=== PATIENT | male | born 1985 | race Caucasian/White ===

== ENCOUNTER 2018-09-07 09:30 | Emergency (ER) | payer SELFPAY ==
[~2018-09-07] VITALS: Ht 162.6 cm; Wt 84.1 kg
[2018-09-07] MEDS ORDERED: ADDE10 PO (09:52)
[2018-09-07 10:01] LABS: BASOPHILS % (AUTO) 0.6 % (0.0-2.0); EOSINOPHILS % (AUTO) 0.1 % (1.0-6.0); HEMATOCRIT 43.9 % (41-53); HEMOGLOBIN 15.5 g/dL (13.5-17.5); LYMPHOCYTES # (AUTO) 0.9 K/uL (1.0-4.8); LYMPHOCYTES % (AUTO) 5.4 % (22.0-44.0); MEAN CORPUSCULAR HEMOGLOBIN 32.2 pg (26.0-34.0); MEAN CORPUSCULAR HGB CONC 35.2 G/dL (31.0-37.0); MEAN CORPUSCULAR VOLUME 92 fL (80-100); MONOCYTES # (AUTO) 1.1 K/uL (0.1-1.0); MONOCYTES % (AUTO) 6.5 % (2.0-9.0); NEUTROPHILS # (AUTO) 14.4 K/uL (1.8-7.7); PLATELET COUNT (AUTO) 315 K/uL (150-450); RED CELL DISTRIBUTION WIDTH 13.9 % (11.5-14.5)
[2018-09-07 10:03] LABS: NEUTROPHILS % (AUTO) 87.4 % (40.0-70.0)
[2018-09-07 10:10] LABS: ANION GAP 11 mmol/L (8-16); CALCIUM, TOTAL 9.3 mg/dL (8.8-10.5); CARBON DIOXIDE 27 mmol/L (22-29); CHLORIDE 104 mmol/L (98-107); GLOMERULAR FILTR. RATE CALC 47 mL/min (>60); GLUCOSE,RANDOM 113 mg/dL (70-110); POTASSIUM 3.1 mmol/L (3.5-5.1); SODIUM SERUM 142 mmol/L (136-145); UREA NITROGEN, BLOOD 13 mg/dL (7-18)
[2018-09-07 10:16] LABS: ALANINE AMINOTRANSFERASE 32 U/L (12-78); ALBUMIN 4.4 g/dL (3.4-5.0); ALKALINE PHOSPHATASE 94 U/L (46-116); ASPARTATE AMINOTRANSFERASE 40 U/L (15-37); BILIRUBIN,TOTAL 1.2 mg/dL (0.1-1.0); TOTAL PROTEIN, SERUM 8.9 g/dL (6.4-8.2)
[2018-09-07] MEDS ORDERED: LORazepam 2 MG/ML VIAL ONE (10:23)
[2018-09-07] MEDS ORDERED: LORazepam 2 MG/ML VIAL IM ONE ×2 (10:30→20:00)
[2018-09-07] MEDS ORDERED: POTASSIUM CHLORIDE 20 MEQ ER TABLET PO ONE (10:45)
[2018-09-07 12:52] LABS: AMPHET/METH SCREEN,URINE POSITIVE (NEGATIVE); BARBITURATE SCREEN, URINE NEGATIVE (NEGATIVE); BENZODIAZEPINES SCREEN,URINE NEGATIVE (NEGATIVE); CANNABINOID SCREEN,URINE POSITIVE (NEGATIVE); COCAINE SCREEN,URINE NEGATIVE (NEGATIVE); METHADONE SCREEN, URINE NEGATIVE (NEGATIVE); OPIATE SCREEN,URINE NEGATIVE (NEGATIVE)
[2018-09-07 12:53] LABS: PHENCYCLIDINE SCREEN,URINE NEGATIVE (NEGATIVE)
[2018-09-07] MEDS ORDERED: DiphenhydrAMINE HCL 25 MG CAPSULE PO ONE (13:00)
[2018-09-07] MEDS ORDERED: HALOPERIDOL 5 MG TABLET PO ONE (13:00)
[2018-09-07] MEDS ORDERED: DiphenhydrAMINE HCL 50 MG/ML VIAL IM ONE (20:00)
[2018-09-07] MEDS ORDERED: HALOPERIDOL LACTATE 5 MG/ML VIAL IM ONE (20:00)
[2018-09-07 20:32] VITALS: BP 128/76
== END 2018-09-07 20:35 | disposition home or self-care (01) ==
LOC: EMS 09:31
DX: F29 Unspecified psychosis not due to a substance or known physiological condition (principal); F15.10 Other stimulant abuse, uncomplicated; F41.9 Anxiety disorder, unspecified
CPT/HCPCS: 36415; 80053; 80307; 85025; 96372; 99285; G0480; J1200; J1630; J2060

== ENCOUNTER 2022-12-28 19:26 | Inpatient (IN) | payer MEDICAID ==
[~2022-12-28] VITALS: Ht 177.8 cm; Wt 91.7 kg
[~2022-12-28 19:26] MED LIST: ADDE10 PO
[2022-12-28 20:10] LABS: BASOPHILS % (AUTO) 0.3 % (0.0-2.0); EOSINOPHILS % (AUTO) 0 % (1.0-6.0); HEMATOCRIT 50.9 % (41-53); HEMOGLOBIN 17.6 g/dL (13.5-17.5); LYMPHOCYTES # (AUTO) 1.2 K/uL (1.0-4.8); LYMPHOCYTES % (AUTO) 5.7 % (22.0-44.0); MEAN CORPUSCULAR HEMOGLOBIN 33.1 pg (26.0-34.0); MEAN CORPUSCULAR HGB CONC 34.7 G/dL (31.0-37.0); MEAN CORPUSCULAR VOLUME 96 fL (80-100); MONOCYTES # (AUTO) 1.5 K/uL (0.1-1.0); MONOCYTES % (AUTO) 7.5 % (2.0-9.0); NEUTROPHILS # (AUTO) 17.6 K/uL (1.8-7.7); PLATELET COUNT (AUTO) 333 K/uL (150-450); RED BLOOD CELL COUNT(AUTO) 5.33 MIL/uL (4.50-5.90); RED CELL DISTRIBUTION WIDTH 13.8 % (11.5-14.5)
[2022-12-28 20:11] LABS: NEUTROPHILS % (AUTO) 86.5 % (40.0-70.0)
[2022-12-28 20:18] LABS: ANION GAP 11 mmol/L (8-16); CALCIUM, TOTAL 10.5 mg/dL (8.8-10.5); CARBON DIOXIDE 25 mmol/L (22-29); CHLORIDE 106 mmol/L (98-107); CREATININE 1.58 mg/dL (0.60-1.30); GLOMERULAR FILTR. RATE CALC 50 mL/min (>60); GLUCOSE,RANDOM 112 mg/dL (70-110); POTASSIUM 3.8 mmol/L (3.5-5.1); SODIUM SERUM 142 mmol/L (136-145); UREA NITROGEN, BLOOD 30 mg/dL (7-18)
[2022-12-28 20:24] LABS: ALANINE AMINOTRANSFERASE 66 U/L (12-78); ALBUMIN 5.6 g/dL (3.4-5.0); ALKALINE PHOSPHATASE 116 U/L (46-116); ASPARTATE AMINOTRANSFERASE 62 U/L (15-37); BILIRUBIN,TOTAL 1.4 mg/dL (0.1-1.0); TOTAL PROTEIN, SERUM 9.9 g/dL (6.4-8.2)
[2022-12-28] MEDS ORDERED: HALOPERIDOL LACTATE 5 MG/ML VIAL IM ONE (21:15)
[2022-12-28] MEDS ORDERED: DiphenhydrAMINE HCL 50 MG/ML VIAL IM ONE (21:15)
[2022-12-28] MEDS ORDERED: LORazepam 2 MG/ML VIAL IM ONE (21:15)
[2022-12-28] MEDS ORDERED: ZOLPIDEM TARTRATE 10 MG TABLET PO PRN (22:30)
[2022-12-28] MEDS ORDERED: HALOPERIDOL 5 MG TABLET PO PRN (22:30)
[2022-12-28] MEDS ORDERED: LORazepam 2 MG TABLET PO PRN (22:30)
[2022-12-28 23:37] LABS: COVID AG,FIA SOURCE NASOPHARYNGEAL
[2022-12-29 09:11] LABS: APPEARANCE,URINE CLEAR (CLEAR); BILIRUBIN,URINE NEGATIVE (NEGATIVE); GLUCOSE, URINE (UA) NEGATIVE (NEGATIVE); KETONES,URINE NEGATIVE (NEGATIVE); LEUKOCYTE ESTERASE ,URINE NEGATIVE (NEGATIVE); NITRATE,URINE NEGATIVE (NEGATIVE); OCCULT BLOOD,URINE NEGATIVE (NEGATIVE); PH,URINE 6.5 (5.0-8.0); PROTEIN,URINE NEGATIVE (NEGATIVE); SPECIFIC GRAVITIY, URINE 1.009 (1.003-1.030); UROBILINOGEN,URINE <=1.0 mg/dL (<=1.0)
[2022-12-29 09:14] LABS: AMPHET/METH SCREEN,URINE NEGATIVE (NEGATIVE); BARBITURATE SCREEN, URINE NEGATIVE (NEGATIVE); BENZODIAZEPINES SCREEN,URINE NEGATIVE (NEGATIVE); CANNABINOID SCREEN,URINE NEGATIVE (NEGATIVE); COCAINE SCREEN,URINE NEGATIVE (NEGATIVE); METHADONE SCREEN, URINE NEGATIVE (NEGATIVE); OPIATE SCREEN,URINE NEGATIVE (NEGATIVE); PHENCYCLIDINE SCREEN,URINE NEGATIVE (NEGATIVE)
[2022-12-29 14:50] VITALS: BP 157/93
[2022-12-29] MEDS ORDERED: CABO6SUS IM (15:41)
[2022-12-29] MEDS ORDERED: BICT1TAB PO (15:41)
[2022-12-29] MEDS ORDERED: ATOR10TA69 PO (15:41)
[2022-12-29 16:23] VITALS: BP 123/73
[2022-12-29] MEDS: ATORVASTATIN CALCIUM 10 MG TABLET PO SCH (17:35)
[2022-12-29] MEDS: BICTEGRAV/EMTRICIT/TENOFOV ALA 50-200-25 MG TABLET PO SCH (17:36)
[2022-12-29 20:14] VITALS: BP 121/76
[2022-12-29 21:05] VITALS: BP 121/76
[2022-12-30] MEDS ORDERED: BACITRACIN 28 GM OINTMENT TP PRN (05:30)
[2022-12-30] MEDS ORDERED: PETROLATUM,WHITE 28 GM JELLY TP PRN (05:30)
[2022-12-30] MEDS ORDERED: CloNIDine HCL 0.1 MG TABLET PO PRN (05:30)
[2022-12-30] MEDS ORDERED: LOPERAMIDE HCL 2 MG CAPSULE PO PRN (05:30)
[2022-12-30] MEDS ORDERED: OMEPRAZOLE 20 MG CAPSULE PO PRN (05:30)
[2022-12-30] MEDS ORDERED: ALBUTEROL SULFATE HFA 90 MCG/PUFF 8 GM INHALER IH PRN (05:30)
[2022-12-30] MEDS ORDERED: BENZOCAINE/MENTHOL LOZENGE PO PRN (05:30)
[2022-12-30] MEDS ORDERED: MAGNESIUM HYDROXIDE SUSPENSION 30 ML UDCUP PO PRN (05:30)
[2022-12-30] MEDS ORDERED: DOCUSATE SODIUM 100 MG CAPSULE PO PRN (05:30)
[2022-12-30] MEDS ORDERED: ACETAMINOPHEN 325 MG TABLET PO PRN (05:30)
[2022-12-30] MEDS ORDERED: MAG HYDROX/AL HYDROX/SIMETH ES 30 ML SUSPENSION UDCUP PO PRN (05:30)
[2022-12-30] MEDS ORDERED: ONDANSETRON HCL 4 MG TABLET PO PRN (05:30)
[2022-12-30 08:00] VITALS: BP 114/65
[2022-12-30] MEDS: ATORVASTATIN CALCIUM 10 MG TABLET PO SCH (09:12)
[2022-12-30] MEDS: BICTEGRAV/EMTRICIT/TENOFOV ALA 50-200-25 MG TABLET PO SCH (09:12)
[2022-12-30] MEDS: IBUPROFEN 600 MG TABLET PO PRN ×2 (12:04→19:07)
[2022-12-30 16:00] VITALS: BP 110/72
[2022-12-30 20:35] VITALS: BP 135/82
[2022-12-31 07:45] LABS: BASOPHILS % (AUTO) 0.2 % (0.0-2.0); EOSINOPHILS % (AUTO) 1.7 % (1.0-6.0); HEMATOCRIT 40.8 % (41-53); HEMOGLOBIN 14.4 g/dL (13.5-17.5); LYMPHOCYTES # (AUTO) 0.9 K/uL (1.0-4.8); LYMPHOCYTES % (AUTO) 13.3 % (22.0-44.0); MEAN CORPUSCULAR HGB CONC 35.2 G/dL (31.0-37.0); MEAN CORPUSCULAR VOLUME 97 fL (80-100); MONOCYTES # (AUTO) 0.9 K/uL (0.1-1.0); MONOCYTES % (AUTO) 13.7 % (2.0-9.0); NEUTROPHILS # (AUTO) 4.7 K/uL (1.8-7.7); NEUTROPHILS % (AUTO) 71.1 % (40.0-70.0); PLATELET COUNT (AUTO) 201 K/uL (150-450); RED BLOOD CELL COUNT(AUTO) 4.22 MIL/uL (4.50-5.90); RED CELL DISTRIBUTION WIDTH 13.6 % (11.5-14.5)
[2022-12-31 07:59] LABS: ALANINE AMINOTRANSFERASE 68 U/L (12-78); ALBUMIN 3.6 g/dL (3.4-5.0); ALKALINE PHOSPHATASE 85 U/L (46-116); ANION GAP 6 mmol/L (8-16); ASPARTATE AMINOTRANSFERASE 112 U/L (15-37); BILIRUBIN,TOTAL 0.6 mg/dL (0.1-1.0); CALCIUM, TOTAL 8.4 mg/dL (8.8-10.5); CARBON DIOXIDE 29 mmol/L (22-29); CHLORIDE 105 mmol/L (98-107); CREATININE 1.07 mg/dL (0.60-1.30); GLOMERULAR FILTR. RATE CALC > 60 mL/min (>60); GLUCOSE,RANDOM 92 mg/dL (70-110); PHOSPHORUS 3.5 mg/dL (2.5-4.9); POTASSIUM 4.2 mmol/L (3.5-5.1); SODIUM SERUM 140 mmol/L (136-145); TOTAL PROTEIN, SERUM 6.9 g/dL (6.4-8.2); UREA NITROGEN, BLOOD 22 mg/dL (7-18)
[2022-12-31 08:46] VITALS: BP 123/71
[2022-12-31] MEDS: BICTEGRAV/EMTRICIT/TENOFOV ALA 50-200-25 MG TABLET PO SCH (09:14)
[2022-12-31] MEDS: ATORVASTATIN CALCIUM 10 MG TABLET PO SCH (09:14)
[2022-12-31] MEDS: RisperiDONE 0.5 MG TABLET PO SCH ×2 (09:22→16:16)
[2022-12-31 16:13] VITALS: BP 118/75
[2022-12-31 16:45] VITALS: BP 123/83
[2022-12-31 20:01] VITALS: BP 123/90
[2022-12-31] MEDS ORDERED: RISP0.5T66 PO (21:55)
[2023-01-01] MEDS: ATORVASTATIN CALCIUM 10 MG TABLET PO SCH (08:54)
[2023-01-01 08:55] VITALS: BP 120/57
[2023-01-01] MEDS: RisperiDONE 0.5 MG TABLET PO SCH (08:55)
[2023-01-01] MEDS: BICTEGRAV/EMTRICIT/TENOFOV ALA 50-200-25 MG TABLET PO SCH (08:55)
== END 2023-01-01 09:50 | disposition home or self-care (01) | DRG 750 ==
LOC: EMS 19:28 → 3EI 12-29 15:11
PROVIDERS: ADMIT Psychiatry & Neurology Psychiatry; ATTEND Psychiatry & Neurology Psychiatry
DX: F20.9 Schizophrenia, unspecified (principal); R45.851 Suicidal ideations; F32.A Depression, unspecified; G47.00 Insomnia, unspecified; K59.00 Constipation, unspecified; F41.9 Anxiety disorder, unspecified; Z20.822 Contact with and (suspected) exposure to COVID-19
CPT/HCPCS: 80053; 80307; 81003; 83735; 84100; 85025; 99291; G0480; J1200; J1630; J2060; Q9967

== ENCOUNTER 2023-07-25 15:20 | Inpatient (IN) | payer MEDICAID, OTHER ==
[~2023-07-25] VITALS: Ht 172.7 cm; Wt 89.3 kg
[~2023-07-25 15:20] MED LIST changes: -ADDE10 PO; +ATOR10TA69 PO; +BICT1TAB PO; +RISP0.5T66 PO
[2023-07-25] MEDS ORDERED: DiphenhydrAMINE HCL 50 MG/ML VIAL IM ONE (15:30)
[2023-07-25] MEDS ORDERED: HALOPERIDOL LACTATE 5 MG/ML VIAL IM ONE (15:30)
[2023-07-25] MEDS ORDERED: LORazepam 2 MG/ML VIAL IM ONE (15:30)
[2023-07-25 17:10] LABS: BASOPHILS % (AUTO) 0.5 % (0.0-2.0); EOSINOPHILS % (AUTO) 0 % (1.0-6.0); HEMATOCRIT 45.5 % (41-53); HEMOGLOBIN 15.8 g/dL (13.5-17.5); LYMPHOCYTES # (AUTO) 1.6 K/uL (1.0-4.8); LYMPHOCYTES % (AUTO) 14.3 % (22.0-44.0); MEAN CORPUSCULAR HEMOGLOBIN 33.5 pg (26.0-34.0); MEAN CORPUSCULAR HGB CONC 34.7 G/dL (31.0-37.0); MEAN CORPUSCULAR VOLUME 97 fL (80-100); MONOCYTES # (AUTO) 0.9 K/uL (0.1-1.0); MONOCYTES % (AUTO) 8.5 % (2.0-9.0); NEUTROPHILS # (AUTO) 8.4 K/uL (1.8-7.7); NEUTROPHILS % (AUTO) 76.7 % (40.0-70.0); PLATELET COUNT (AUTO) 294 K/uL (150-450); RED BLOOD CELL COUNT(AUTO) 4.71 MIL/uL (4.50-5.90); RED CELL DISTRIBUTION WIDTH 13.4 % (11.5-14.5)
[2023-07-25 17:18] LABS: ANION GAP 12 mmol/L (8-16); CALCIUM, TOTAL 9.5 mg/dL (8.8-10.5); CARBON DIOXIDE 26 mmol/L (22-29); CHLORIDE 110 mmol/L (98-107); CREATININE 1.21 mg/dL (0.60-1.30); GLOMERULAR FILTR. RATE CALC > 60 mL/min (>60); GLUCOSE,RANDOM 102 mg/dL (70-110); POTASSIUM 3.4 mmol/L (3.5-5.1); SODIUM SERUM 148 mmol/L (136-145); UREA NITROGEN, BLOOD 15 mg/dL (7-18)
[2023-07-25 17:24] LABS: ALANINE AMINOTRANSFERASE 37 U/L (12-78); ALBUMIN 4.4 g/dL (3.4-5.0); ALKALINE PHOSPHATASE 87 U/L (46-116); ASPARTATE AMINOTRANSFERASE 26 U/L (15-37); BILIRUBIN,TOTAL 0.9 mg/dL (0.1-1.0); TOTAL PROTEIN, SERUM 8.4 g/dL (6.4-8.2)
[2023-07-25 17:31] LABS: ALCOHOL, BLOOD (SERUM) < 3 mg/dL (0-10)
[2023-07-25 19:06] LABS: COVID AG,FIA SOURCE NASAL SWAB
[2023-07-25 19:33] LABS: SARS-COV2 (COVID) ANTIGEN,FIA Negative (Negative)
[2023-07-25] MEDS: LORazepam 2 MG TABLET PO PRN (21:12)
[2023-07-25] MEDS: ZOLPIDEM TARTRATE 10 MG TABLET PO PRN (21:27)
[2023-07-25 21:39] VITALS: BP 132/82; PULSE 94; RESP 18; TEMP 97.6
[2023-07-26] MEDS ORDERED: PETROLATUM,WHITE 28 GM JELLY TP PRN (07:30)
[2023-07-26] MEDS ORDERED: GuaiFENesin/D-METHORPHAN [SUGAR-FREE] 200-20MG/10 ML SYRUP UDCUP PO PRN (07:30)
[2023-07-26] MEDS ORDERED: NICOTINE 14 MG/24 HOUR PATCH TD PRN (07:30)
[2023-07-26] MEDS ORDERED: MAG HYDROX/AL HYDROX/SIMETH ES 30 ML SUSPENSION UDCUP PO PRN (07:30)
[2023-07-26] MEDS ORDERED: ACETAMINOPHEN 325 MG TABLET PO PRN (07:30)
[2023-07-26] MEDS ORDERED: LOPERAMIDE HCL 2 MG CAPSULE PO PRN (07:30)
[2023-07-26] MEDS ORDERED: CloNIDine HCL 0.1 MG TABLET PO PRN (07:30)
[2023-07-26] MEDS ORDERED: MAGNESIUM HYDROXIDE SUSPENSION 30 ML UDCUP PO PRN (07:30)
[2023-07-26] MEDS ORDERED: ONDANSETRON HCL 4 MG TABLET PO PRN (07:30)
[2023-07-26] MEDS ORDERED: ALBUTEROL SULFATE HFA 90 MCG/PUFF 8 GM INHALER IH PRN (07:30)
[2023-07-26] MEDS ORDERED: IBUPROFEN 400 MG TABLET PO PRN (07:30)
[2023-07-26] MEDS ORDERED: DOCUSATE SODIUM 100 MG CAPSULE PO PRN (07:30)
[2023-07-26] MEDS: GABAPENTIN 300 MG CAPSULE PO SCH ×2 (11:21→12:15)
[2023-07-26] MEDS: RisperiDONE 2 MG TABLET PO SCH ×3 (11:21→21:04)
[2023-07-26] MEDS: BusPIRone HCL 15 MG TABLET PO SCH ×3 (11:21→17:00)
[2023-07-26] MEDS: LamoTRIgine 25 MG TABLET PO SCH ×2 (11:22→12:15)
[2023-07-26] MEDS: HALOPERIDOL 5 MG TABLET PO PRN ×2 (11:28→17:05)
[2023-07-26] MEDS: LORazepam 2 MG TABLET PO PRN ×2 (11:28→17:05)
[2023-07-26 11:33] VITALS: BP 127/74; PULSE 86; RESP 16; TEMP 97.4
[2023-07-26] MEDS: ZOLPIDEM TARTRATE 10 MG TABLET PO PRN (21:04)
[2023-07-27 09:28] LABS: THYROID STIMULATING HORMONE 2.08 uIU/mL (0.36-3.74)
[2023-07-27 10:47] VITALS: BP 129/76; PULSE 96; RESP 18; TEMP 97
[2023-07-27] MEDS: BusPIRone HCL 15 MG TABLET PO SCH ×2 (12:24→17:09)
[2023-07-27] MEDS: RisperiDONE 2 MG TABLET PO SCH ×2 (12:24→20:27)
[2023-07-27] MEDS: HALOPERIDOL 5 MG TABLET PO PRN (12:30)
[2023-07-27] MEDS: LORazepam 2 MG TABLET PO PRN ×2 (12:30→17:26)
[2023-07-27] MEDS: ZOLPIDEM TARTRATE 10 MG TABLET PO PRN (20:27)
[2023-07-28 07:48] LABS: CHOL/HDL RATIO 4.3 (4.2-7.3)
[2023-07-28 08:15] VITALS: BP 127/65; PULSE 91; RESP 17; TEMP 98.2
[2023-07-28] MEDS: BusPIRone HCL 15 MG TABLET PO SCH (08:33)
[2023-07-28] MEDS: RisperiDONE 2 MG TABLET PO SCH (08:33)
[2023-07-28] MEDS ORDERED: RISP2TAB86 PO (12:52)
[2023-07-28] MEDS ORDERED: BUSP15 PO (12:52)
== END 2023-07-28 15:30 | disposition home or self-care (01) | DRG 750 ==
LOC: EMS 15:22 → 3EC 18:58
PROVIDERS: ADMIT Psychiatry & Neurology Child & Adolescent Psychiatry; ATTEND Psychiatry & Neurology Child & Adolescent Psychiatry
DX: F25.9 Schizoaffective disorder, unspecified (principal); E87.0 Hyperosmolality and hypernatremia; E87.6 Hypokalemia; F41.9 Anxiety disorder, unspecified; F90.9 Attention-deficit hyperactivity disorder, unspecified type; Z20.822 Contact with and (suspected) exposure to COVID-19; Z59.00 Homelessness unspecified
CPT/HCPCS: 80053; 80061; 83036; 84443; 85025; 99291; G0480; J1200; J1630; J2060

== ENCOUNTER 2023-07-31 20:55 | Emergency (ER) | payer MEDICAID, OTHER ==
[~2023-07-31] VITALS: Ht 177.8 cm; Wt 88.6 kg
[~2023-07-31 20:55] MED LIST changes: -ATOR10TA69 PO; -BICT1TAB PO; +BUSP15 PO; -RISP0.5T66 PO; +RISP2TAB86 PO
[2023-07-31 20:58] VITALS: TEMP 98.5
[2023-07-31 21:29] LABS: COVID AG,FIA SOURCE NASAL SWAB
[2023-07-31 21:30] LABS: PH,URINE DRUG SCREEN 6.5 (5.0-8.0)
[2023-07-31 21:31] LABS: BASOPHILS % (AUTO) 0.3 % (0.0-2.0); EOSINOPHILS % (AUTO) 0 % (1.0-6.0); HEMOGLOBIN 15.3 g/dL (13.5-17.5); LYMPHOCYTES # (AUTO) 1.2 K/uL (1.0-4.8); LYMPHOCYTES % (AUTO) 10.8 % (22.0-44.0); MEAN CORPUSCULAR HEMOGLOBIN 33.7 pg (26.0-34.0); MEAN CORPUSCULAR HGB CONC 34.7 G/dL (31.0-37.0); MEAN CORPUSCULAR VOLUME 97 fL (80-100); MONOCYTES # (AUTO) 0.8 K/uL (0.1-1.0); MONOCYTES % (AUTO) 7.6 % (2.0-9.0); NEUTROPHILS % (AUTO) 81.3 % (40.0-70.0); PLATELET COUNT (AUTO) 268 K/uL (150-450); RED BLOOD CELL COUNT(AUTO) 4.53 MIL/uL (4.50-5.90); WHITE BLOOD COUNT (AUTO) 11.1 K/uL (4.5-11.0)
[2023-07-31 21:36] LABS: ALCOHOL, URINE DRUG SCREEN NEGATIVE (NEGATIVE); AMPHET/METH SCREEN,URINE POSITIVE (NEGATIVE); BARBITURATE SCREEN, URINE NEGATIVE (NEGATIVE); BENZODIAZEPINES SCREEN,URINE POSITIVE (NEGATIVE); CANNABINOID SCREEN,URINE POSITIVE (NEGATIVE); COCAINE SCREEN,URINE NEGATIVE (NEGATIVE); METHADONE SCREEN, URINE NEGATIVE (NEGATIVE); OPIATE SCREEN,URINE NEGATIVE (NEGATIVE); PHENCYCLIDINE SCREEN,URINE NEGATIVE (NEGATIVE)
[2023-07-31 21:45] LABS: ANION GAP 11 mmol/L (8-16); CALCIUM, TOTAL 9.1 mg/dL (8.8-10.5); CARBON DIOXIDE 23 mmol/L (22-29); CHLORIDE 105 mmol/L (98-107); CREATININE 1.38 mg/dL (0.60-1.30); GLOMERULAR FILTR. RATE CALC 58 mL/min (>60); GLUCOSE,RANDOM 120 mg/dL (70-110); POTASSIUM 3.4 mmol/L (3.5-5.1); SODIUM SERUM 139 mmol/L (136-145); UREA NITROGEN, BLOOD 19 mg/dL (7-18)
[2023-07-31 21:50] LABS: ALANINE AMINOTRANSFERASE 32 U/L (12-78); ALBUMIN 3.8 g/dL (3.4-5.0); ALKALINE PHOSPHATASE 86 U/L (46-116); ASPARTATE AMINOTRANSFERASE 23 U/L (15-37); BILIRUBIN,TOTAL 0.9 mg/dL (0.1-1.0); TOTAL PROTEIN, SERUM 7.7 g/dL (6.4-8.2)
[2023-07-31 21:52] LABS: SARS-COV2 (COVID) ANTIGEN,FIA Negative (Negative)
[2023-07-31 22:05] LABS: ALCOHOL, BLOOD (SERUM) < 3 mg/dL (0-10)
[2023-08-01] MEDS ORDERED: LORazepam 2 MG/ML VIAL IM ONE (00:45)
[2023-08-01] MEDS ORDERED: HALOPERIDOL LACTATE 5 MG/ML VIAL IM ONE (00:45)
[2023-08-01] MEDS ORDERED: DiphenhydrAMINE HCL 50 MG/ML VIAL IM ONE (00:45)
[2023-08-01 05:59] VITALS: BP 132/78; PULSE 70; RESP 20
== END 2023-08-01 06:02 | disposition home or self-care (01) ==
LOC: EMS 20:55
DX: F20.9 Schizophrenia, unspecified (principal); F15.10 Other stimulant abuse, uncomplicated; F41.9 Anxiety disorder, unspecified; F90.9 Attention-deficit hyperactivity disorder, unspecified type; Z20.822 Contact with and (suspected) exposure to COVID-19
CPT/HCPCS: 99291; 87426; 80053; 85025; 36415; 80307; 96372; G0480; C9803; J1200; J1630; J2060; 99284

== ENCOUNTER 2024-08-14 03:51 | Inpatient (IN) | payer MEDICAID, OTHER ==
[~2024-08-14] VITALS: Ht 177.8 cm; Wt 86.2 kg
[2024-08-14 04:47] LABS: PH,URINE DRUG SCREEN 5.5 (5.0-8.0)
[2024-08-14 04:54] LABS: ALCOHOL, URINE DRUG SCREEN NEGATIVE (NEGATIVE); AMPHET/METH SCREEN,URINE POSITIVE (NEGATIVE); BARBITURATE SCREEN, URINE NEGATIVE (NEGATIVE); BENZODIAZEPINES SCREEN,URINE NEGATIVE (NEGATIVE); CANNABINOID SCREEN,URINE POSITIVE (NEGATIVE); COCAINE SCREEN,URINE NEGATIVE (NEGATIVE); METHADONE SCREEN, URINE NEGATIVE (NEGATIVE); OPIATE SCREEN,URINE NEGATIVE (NEGATIVE); PHENCYCLIDINE SCREEN,URINE NEGATIVE (NEGATIVE)
[2024-08-14 05:36] LABS: BASOPHILS % (AUTO) 0.6 % (0.0-2.0); EOSINOPHILS % (AUTO) 0.2 % (1.0-6.0); HEMATOCRIT 43.9 % (41-53); HEMOGLOBIN 15.2 g/dL (13.5-17.5); LYMPHOCYTES # (AUTO) 2.2 K/uL (1.0-4.8); LYMPHOCYTES % (AUTO) 16.6 % (22.0-44.0); MEAN CORPUSCULAR HEMOGLOBIN 32.1 pg (26.0-34.0); MEAN CORPUSCULAR HGB CONC 34.7 G/dL (31.0-37.0); MEAN CORPUSCULAR VOLUME 93 fL (80-100); MONOCYTES # (AUTO) 1.1 K/uL (0.1-1.0); MONOCYTES % (AUTO) 8.5 % (2.0-9.0); NEUTROPHILS # (AUTO) 9.6 K/uL (1.8-7.7); NEUTROPHILS % (AUTO) 74.1 % (40.0-70.0); PLATELET COUNT (AUTO) 317 K/uL (150-450); RED BLOOD CELL COUNT(AUTO) 4.75 MIL/uL (4.50-5.90); RED CELL DISTRIBUTION WIDTH 15.7 % (11.5-14.5)
[2024-08-14 06:19] LABS: ALCOHOL, BLOOD (SERUM) < 3 mg/dL (0-10)
[2024-08-14] MEDS: ACETAMINOPHEN 325 MG TABLET PO ONE (06:44)
[2024-08-14 09:46] LABS: ANION GAP 14 mmol/L (8-16); CALCIUM, TOTAL 9.1 mg/dL (8.8-10.5); CARBON DIOXIDE 24 mmol/L (22-29); CHLORIDE 102 mmol/L (98-107); CREATININE 1.17 mg/dL (0.60-1.30); GLOMERULAR FILTR. RATE CALC > 60 mL/min (>60); GLUCOSE,RANDOM 107 mg/dL (70-110); POTASSIUM 3.5 mmol/L (3.5-5.1); SODIUM SERUM 140 mmol/L (136-145); UREA NITROGEN, BLOOD 19 mg/dL (7-18)
[2024-08-14 09:52] LABS: ALANINE AMINOTRANSFERASE 54 U/L (12-78); ALBUMIN 4.3 g/dL (3.4-5.0); ALKALINE PHOSPHATASE 94 U/L (46-116); ASPARTATE AMINOTRANSFERASE 53 U/L (15-37); TOTAL PROTEIN, SERUM 8.2 g/dL (6.4-8.2)
[2024-08-14] MEDS ORDERED: LOPERAMIDE HCL 2 MG CAPSULE PO PRN (10:00)
[2024-08-14] MEDS ORDERED: HALOPERIDOL 5 MG TABLET PO PRN (10:00)
[2024-08-14] MEDS ORDERED: ACETAMINOPHEN 325 MG TABLET PO PRN (10:00)
[2024-08-14] MEDS ORDERED: ZOLPIDEM TARTRATE 10 MG TABLET PO PRN (10:00)
[2024-08-14] MEDS ORDERED: MAG HYDROX/ALUMINUM HYD/SIMETH ES 30 ML SUSPENSION UDCUP PO PRN (10:00)
[2024-08-14] MEDS ORDERED: MAGNESIUM HYDROXIDE SUSPENSION 30 ML UDCUP PO PRN (10:00)
[2024-08-14] MEDS: LORazepam 2 MG TABLET PO PRN (11:53)
[2024-08-14 12:41] LABS: COVID AG,FIA SOURCE NASAL SWAB
[2024-08-14 13:03] LABS: SARS-COV2 (COVID) ANTIGEN,FIA Negative (Negative)
[2024-08-14 17:29] VITALS: BP 140/94; PULSE 99; RESP 16; TEMP 97.4; O2SAT 98
[2024-08-14 20:15] VITALS: BP 138/86; PULSE 95; RESP 17; TEMP 97.3; O2SAT 98
[2024-08-15] MEDS: PNEUMOCOCCAL VACCINE POLYVALENT 0.5 ML SYRINGE [PPSV23] IM. ONE (08:00)
[2024-08-15] MEDS ORDERED: NICOTINE 14 MG/24 HOUR PATCH TD PRN (10:15)
[2024-08-15] MEDS ORDERED: IBUPROFEN 400 MG TABLET PO PRN (10:15)
[2024-08-15] MEDS ORDERED: PETROLATUM,WHITE 28 GM JELLY TP PRN (10:15)
[2024-08-15] MEDS ORDERED: ACETAMINOPHEN 325 MG TABLET PO PRN (10:15)
[2024-08-15] MEDS ORDERED: ONDANSETRON 4 MG TABLET PO PRN (10:15)
[2024-08-15] MEDS ORDERED: CloNIDine HCL 0.1 MG TABLET PO PRN (10:15)
[2024-08-15] MEDS ORDERED: MAGNESIUM HYDROXIDE SUSPENSION 30 ML UDCUP PO PRN (10:15)
[2024-08-15] MEDS ORDERED: MAG HYDROX/ALUMINUM HYD/SIMETH ES 30 ML SUSPENSION UDCUP PO PRN (10:15)
[2024-08-15] MEDS ORDERED: LOPERAMIDE HCL 2 MG CAPSULE PO PRN (10:15)
[2024-08-15] MEDS ORDERED: DOCUSATE SODIUM 100 MG CAPSULE PO PRN (10:15)
[2024-08-15] MEDS ORDERED: ALBUTEROL SULFATE HFA 90 MCG/PUFF 8 GM INHALER IH PRN (10:15)
[2024-08-15] MEDS ORDERED: GuaiFENesin/D-METHORPHAN [SUGAR-FREE] 200-20MG/10 ML SYRUP UDCUP PO PRN (10:15)
[2024-08-15] MEDS: INFLUENZA VIRUS VACCINE TVS (6MO+) 2024-25/PF 45 MCG/0.5 ML SYRINGE IM. ONE (20:29)
[2024-08-15 21:04] VITALS: BP 136/90; PULSE 96; RESP 18; TEMP 97.1; O2SAT 99
[2024-08-16 08:06] VITALS: RESP 18
[2024-08-16 09:01] LABS: CHOL/HDL RATIO 3.5 (4.2-7.3); HEMOGLOBIN A1C 4.8 % (3.8-5.6); THYROID STIMULATING HORMONE 1.11 uIU/mL (0.36-3.74)
== END 2024-08-16 17:49 | disposition left against medical advice (07) | DRG 751 ==
LOC: EMS 03:51 → B2S 15:57
PROVIDERS: ADMIT Psychiatry & Neurology Psychiatry; ATTEND Psychiatry & Neurology Psychiatry
PROC: GZHZZZZ Group Psychotherapy (ICD-10-PCS; principal; 2024-08-15)
DX: F33.2 Major depressive disorder, recurrent severe without psychotic features (principal); R45.851 Suicidal ideations; F20.9 Schizophrenia, unspecified; D72.829 Elevated white blood cell count, unspecified; Z53.21 Procedure and treatment not carried out due to patient leaving prior to being seen by health care provider; F90.9 Attention-deficit hyperactivity disorder, unspecified type; F41.9 Anxiety disorder, unspecified; I10 Essential (primary) hypertension; G47.00 Insomnia, unspecified; Z59.00 Homelessness unspecified; F15.90 Other stimulant use, unspecified, uncomplicated; Z21 Asymptomatic human immunodeficiency virus [HIV] infection status; R00.0 Tachycardia, unspecified
CPT/HCPCS: 80048; 80061; 80076; 80307; 83036; 84443; 85025; 99285; G0480

== ENCOUNTER 2024-11-01 22:13 | Inpatient (IN) | payer MEDICAID, OTHER ==
[~2024-11-01] VITALS: Ht 172.7 cm; Wt 84.0 kg
[2024-11-01] MEDS ORDERED: HALOPERIDOL 5 MG TABLET PO PRN (23:00)
[2024-11-01] MEDS ORDERED: LORazepam 2 MG TABLET PO PRN (23:00)
[2024-11-02 02:08] LABS: COVID AG,FIA SOURCE NASAL SWAB
[2024-11-02 02:16] LABS: SARS-COV2 (COVID) ANTIGEN,FIA Negative (Negative)
[2024-11-02 05:58] VITALS: BP 129/87; PULSE 91; RESP 18; TEMP 97.9; O2SAT 100
[2024-11-02] MEDS ORDERED: IBUPROFEN 400 MG TABLET PO PRN (06:30)
[2024-11-02] MEDS ORDERED: ACETAMINOPHEN 325 MG TABLET PO PRN (06:30)
[2024-11-02] MEDS ORDERED: DOCUSATE SODIUM 100 MG CAPSULE PO PRN (06:30)
[2024-11-02] MEDS ORDERED: MAGNESIUM HYDROXIDE SUSPENSION 30 ML UDCUP PO PRN (06:30)
[2024-11-02] MEDS ORDERED: ALBUTEROL SULFATE HFA 90 MCG/PUFF 8 GM INHALER IH PRN (06:30)
[2024-11-02] MEDS ORDERED: CloNIDine HCL 0.1 MG TABLET PO PRN (06:30)
[2024-11-02] MEDS ORDERED: LOPERAMIDE HCL 2 MG CAPSULE PO PRN (06:30)
[2024-11-02] MEDS ORDERED: ONDANSETRON 4 MG TABLET PO PRN (06:30)
[2024-11-02] MEDS ORDERED: PETROLATUM,WHITE 28 GM JELLY TP PRN (06:30)
[2024-11-02] MEDS ORDERED: MAG HYDROX/ALUMINUM HYD/SIMETH ES 30 ML SUSPENSION UDCUP PO PRN (06:30)
[2024-11-02] MEDS ORDERED: GuaiFENesin/D-METHORPHAN [SUGAR-FREE] 200-20MG/10 ML SYRUP UDCUP PO PRN (06:30)
[2024-11-02] MEDS: OLANZapine 5 MG RAPDIS TABLET PO SCH (17:16)
[2024-11-02 22:52] VITALS: RESP 18
[2024-11-03 12:41] VITALS: RESP 17
[2024-11-03 20:32] VITALS: BP 125/78; PULSE 86; RESP 18; TEMP 98.1; O2SAT 98
[2024-11-03] MEDS: ZOLPIDEM TARTRATE 10 MG TABLET PO PRN (20:58)
== END 2024-11-04 18:34 | disposition home or self-care (01) | DRG 750 ==
LOC: EMS 22:14 → B2S 11-02 02:57
PROVIDERS: ADMIT Psychiatry & Neurology Child & Adolescent Psychiatry; ATTEND Psychiatry & Neurology Child & Adolescent Psychiatry
PROC: GZ56ZZZ Individual Psychotherapy, Supportive (ICD-10-PCS; principal; 2024-11-02)
DX: F20.9 Schizophrenia, unspecified (principal); F15.10 Other stimulant abuse, uncomplicated; Z20.822 Contact with and (suspected) exposure to COVID-19; F41.9 Anxiety disorder, unspecified; G47.00 Insomnia, unspecified; I10 Essential (primary) hypertension; Z59.00 Homelessness unspecified; Z88.8 Allergy status to other drugs, medicaments and biological substances
CPT/HCPCS: 99285; Z7502; Z7610

== ENCOUNTER 2025-06-04 20:01 | Inpatient (IN) | payer MEDICAID, OTHER ==
[~2025-06-04] VITALS: Ht 177.8 cm; Wt 82.3 kg
[2025-06-04 20:12] VITALS: O2SAT 98
[2025-06-04 20:40] LABS: PLATELET COUNT (AUTO) 323 K/uL (150-450); RED BLOOD CELL COUNT(AUTO) 4.72 MIL/uL (4.50-5.90); RED CELL DISTRIBUTION WIDTH 13.9 % (11.5-14.5); WHITE BLOOD COUNT (AUTO) 6.7 K/uL (4.5-11.0)
[2025-06-04 20:46] LABS: COVID AG,FIA SOURCE NASAL SWAB
[2025-06-04 20:50] LABS: CALCIUM, TOTAL 8.6 mg/dL (8.8-10.5); CREATININE 1.20 mg/dL (0.60-1.30); GLOMERULAR FILTR. RATE CALC > 60 mL/min (>60); GLUCOSE,RANDOM 113 mg/dL (70-110); SODIUM SERUM 138 mmol/L (136-145); UREA NITROGEN, BLOOD 18 mg/dL (7-18)
[2025-06-04] MEDS: LORazepam 2 MG/ML VIAL IM ONE (20:53)
[2025-06-04 21:12] LABS: SARS-COV2 (COVID) ANTIGEN,FIA Negative (Negative)
[2025-06-04] MEDS ORDERED: ZOLPIDEM TARTRATE 10 MG TABLET PO PRN (21:15)
[2025-06-04 21:25] LABS: APPEARANCE,URINE CLEAR (CLEAR); GLUCOSE, URINE (UA) NEGATIVE (NEGATIVE); LEUKOCYTE ESTERASE ,URINE NEGATIVE (NEGATIVE); NITRATE,URINE NEGATIVE (NEGATIVE); OCCULT BLOOD,URINE NEGATIVE (NEGATIVE); PH,URINE DRUG SCREEN 6.0 (5.0-8.0); SPECIFIC GRAVITIY, URINE 1.046 (1.003-1.030)
[2025-06-04 21:32] LABS: ALCOHOL, URINE DRUG SCREEN NEGATIVE (NEGATIVE); AMPHET/METH SCREEN,URINE POSITIVE (NEGATIVE); BARBITURATE SCREEN, URINE NEGATIVE (NEGATIVE); CANNABINOID SCREEN,URINE POSITIVE (NEGATIVE); COCAINE SCREEN,URINE NEGATIVE (NEGATIVE); METHADONE SCREEN, URINE NEGATIVE (NEGATIVE)
[2025-06-04] MEDS: POTASSIUM CHLORIDE 20 MEQ ER TABLET PO ONE (21:51)
[2025-06-05 02:16] VITALS: BP 100/89; PULSE 76; RESP 18; TEMP 97.2; O2SAT 99
[2025-06-05 08:07] VITALS: BP 104/60; PULSE 64; RESP 17; TEMP 97.4; O2SAT 98
[2025-06-05] MEDS ORDERED: MAG HYDROX/ALUMINUM HYD/SIMETH ES 30 ML SUSPENSION UDCUP PO PRN (09:45)
[2025-06-05] MEDS ORDERED: DOCUSATE SODIUM 100 MG CAPSULE PO PRN (09:45)
[2025-06-05] MEDS ORDERED: PETROLATUM,WHITE 28 GM JELLY TP PRN (09:45)
[2025-06-05] MEDS ORDERED: MAGNESIUM HYDROXIDE SUSPENSION 30 ML UDCUP PO PRN (09:45)
[2025-06-05] MEDS ORDERED: BENZOCAINE/MENTHOL [CEPACOL] LOZENGE PO PRN (09:45)
[2025-06-05] MEDS ORDERED: ACETAMINOPHEN 325 MG TABLET PO PRN (09:45)
[2025-06-05] MEDS ORDERED: BACITRACIN 28 GM OINTMENT TP PRN (09:45)
[2025-06-05] MEDS ORDERED: OMEPRAZOLE 20 MG CAPSULE PO PRN (09:45)
[2025-06-05] MEDS ORDERED: ALBUTEROL SULFATE HFA 90 MCG/PUFF 8 GM INHALER IH PRN (09:45)
[2025-06-05] MEDS ORDERED: LOPERAMIDE HCL 2 MG CAPSULE PO PRN (09:45)
[2025-06-05] MEDS ORDERED: ONDANSETRON 4 MG TABLET PO PRN (09:45)
[2025-06-05] MEDS: BICTEGRAV/EMTRICIT/TENOFOV ALA 50-200-25 MG TABLET PO SCH (10:05)
[2025-06-05 20:09] VITALS: BP 115/67; PULSE 84; RESP 17; TEMP 97.7; O2SAT 98
[2025-06-06 08:06] VITALS: RESP 15
[2025-06-06 19:58] VITALS: BP 109/89; PULSE 80; RESP 17; TEMP 97.2; O2SAT 100
[2025-06-06] MEDS: IBUPROFEN 600 MG TABLET PO PRN (19:59)
[2025-06-06 20:10] VITALS: BP 109/89; PULSE 80; RESP 18; TEMP 97.2; O2SAT 100
[2025-06-06 20:58] VITALS: BP 104/70; PULSE 76; RESP 17; TEMP 97.6; O2SAT 97
[2025-06-06 21:59] VITALS: BP 110/68; PULSE 72; RESP 18; TEMP 97.5; O2SAT 99
[2025-06-07 08:05] VITALS: BP 105/60; PULSE 71; RESP 17; TEMP 97.6; O2SAT 97
[2025-06-07] MEDS ORDERED: BICT1TAB PO (10:14)
[2025-06-07] MEDS ORDERED: RISP-31 PO (10:14)
== END 2025-06-07 13:21 | disposition home or self-care (01) | DRG 750 ==
LOC: EMS 20:01 → B3A 06-05 01:31
PROVIDERS: ADMIT Psychiatry & Neurology Psychiatry; ATTEND Psychiatry & Neurology Psychiatry
PROC: GZHZZZZ Group Psychotherapy (ICD-10-PCS; principal; 2025-06-05)
DX: F20.0 Paranoid schizophrenia (principal); F11.20 Opioid dependence, uncomplicated; F12.10 Cannabis abuse, uncomplicated; F15.10 Other stimulant abuse, uncomplicated; F32.A Depression, unspecified; I10 Essential (primary) hypertension; G47.00 Insomnia, unspecified; F19.10 Other psychoactive substance abuse, uncomplicated; Z20.822 Contact with and (suspected) exposure to COVID-19; K59.00 Constipation, unspecified; F90.9 Attention-deficit hyperactivity disorder, unspecified type; Z59.00 Homelessness unspecified; Z79.899 Other long term (current) drug therapy
CPT/HCPCS: 80048; 80307; 81003; 85025; 96372; 99285; G0480; J1630; J2060

== ENCOUNTER 2025-06-11 10:05 | Emergency (ER) | payer MEDICAID, OTHER ==
[~2025-06-11] VITALS: Ht 177.8 cm; Wt 82.3 kg
[~2025-06-11 10:05] MED LIST changes: +BICT1TAB PO; -BUSP15 PO; +RISP-31 PO; -RISP2TAB86 PO
[2025-06-11 10:20] VITALS: BP 150/71; PULSE 98; RESP 20; TEMP 98.8; O2SAT 99
[2025-06-11] MEDS: KETOROLAC TROMETHAMINE 30 MG/ML VIAL IM ONE (10:59)
[2025-06-11] MEDS ORDERED: ACET-3385 PO (11:01)
== END 2025-06-11 12:03 | disposition home or self-care (01) ==
LOC: EMS 10:05
DX: M76.61 Achilles tendinitis, right leg (principal); F20.9 Schizophrenia, unspecified; I10 Essential (primary) hypertension; F41.9 Anxiety disorder, unspecified; Z79.899 Other long term (current) drug therapy; Z88.8 Allergy status to other drugs, medicaments and biological substances
CPT/HCPCS: 99283; 96372; J1885

== ENCOUNTER 2025-09-05 21:21 | Inpatient (IN) | payer MEDICAID, OTHER ==
[~2025-09-05] VITALS: Ht 175.3 cm; Wt 81.6 kg
[~2025-09-05 21:21] MED LIST changes: +ACET-3385 PO
[2025-09-05] MEDS: LORazepam 2 MG/ML VIAL IM ONE (22:07)
[2025-09-05 22:22] LABS: COVID AG,FIA SOURCE NASAL SWAB; SARS-COV2 (COVID) ANTIGEN,FIA Negative (Negative)
[2025-09-05] MEDS: ACETAMINOPHEN 500 MG TABLET PO ONE (22:30)
[2025-09-05] MEDS: IBUPROFEN 400 MG TABLET PO ONE (22:30)
[2025-09-06] MEDS: ZOLPIDEM TARTRATE 10 MG TABLET PO PRN (02:54)
[2025-09-06 05:40] VITALS: BP 138/81; PULSE 105; RESP 18; TEMP 97.4; O2SAT 96
[2025-09-06 05:48] VITALS: BP 138/81; PULSE 105; RESP 18; TEMP 96; O2SAT 96
[2025-09-06] MEDS ORDERED: ONDANSETRON 4 MG TABLET PO PRN (06:00)
[2025-09-06] MEDS ORDERED: ALBUTEROL SULFATE HFA 90 MCG/PUFF 8 GM INHALER IH PRN (06:00)
[2025-09-06] MEDS ORDERED: LOPERAMIDE HCL 2 MG CAPSULE PO PRN (06:00)
[2025-09-06] MEDS ORDERED: DOCUSATE SODIUM 100 MG CAPSULE PO PRN (06:00)
[2025-09-06] MEDS ORDERED: MAG HYDROX/ALUMINUM HYD/SIMETH ES 30 ML SUSPENSION UDCUP PO PRN (06:00)
[2025-09-06] MEDS ORDERED: PETROLATUM,WHITE 28 GM JELLY TP PRN (06:00)
[2025-09-06] MEDS ORDERED: GuaiFENesin/D-METHORPHAN [SUGAR-FREE] 200-20MG/10 ML SYRUP UDCUP PO PRN (06:00)
[2025-09-06] MEDS ORDERED: MAGNESIUM HYDROXIDE SUSPENSION 30 ML UDCUP PO PRN (06:00)
[2025-09-06] MEDS ORDERED: NICOTINE 14 MG/24 HOUR PATCH TD PRN (06:00)
[2025-09-06] MEDS ORDERED: PNEUMOCOCCAL VACCINE POLYVALENT 0.5 ML SYRINGE [PPSV23] IM. ONE (06:15)
[2025-09-06 06:24] VITALS: RESP 18
[2025-09-06] MEDS ORDERED: ACETAMINOPHEN 325 MG TABLET PO PRN (06:45)
[2025-09-06] MEDS ORDERED: IBUPROFEN 400 MG TABLET PO PRN (06:45)
[2025-09-06] MEDS: BICTEGRAV/EMTRICIT/TENOFOV ALA 50-200-25 MG TABLET PO SCH (08:21)
[2025-09-06] MEDS ORDERED: BICTEGRAV/EMTRICIT/TENOFOV ALA 50-200-25 MG TABLET PO SCH (09:00)
[2025-09-06] MEDS: IBUPROFEN 400 MG TABLET PO PRN (10:50)
[2025-09-06 12:52] VITALS: BP_SYST 115; BP_SYST 119; BP_DIAS 82; BP_DIAS 83; PULSE 69; PULSE 84; RESP 17; TEMP 97.9; O2SAT 98; O2SAT 99
[2025-09-06 20:08] VITALS: RESP 18
[2025-09-07 08:36] VITALS: BP 107/70; PULSE 90; RESP 18; TEMP 98; O2SAT 98
[2025-09-07 09:10] LABS: PLATELET COUNT (AUTO) 248 K/uL (150-450); RED BLOOD CELL COUNT(AUTO) 4.60 MIL/uL (4.50-5.90); RED CELL DISTRIBUTION WIDTH 13.2 % (11.5-14.5); WHITE BLOOD COUNT (AUTO) 4.9 K/uL (4.5-11.0)
[2025-09-07 09:19] LABS: CALCIUM, TOTAL 8.8 mg/dL (8.8-10.5); CREATININE 0.96 mg/dL (0.60-1.30); GLOMERULAR FILTR. RATE CALC > 60 mL/min (>60); GLUCOSE,RANDOM 67 mg/dL (70-110); SODIUM SERUM 141 mmol/L (136-145); UREA NITROGEN, BLOOD 20 mg/dL (7-18)
[2025-09-07 09:50] LABS: CHOL/HDL RATIO 3.8 (4.2-7.3); LDL CHOL (CALC.) 123.0 mg/dL (0-130)
[2025-09-07 18:38] VITALS: RESP 18
[2025-09-07] MEDS: ACETAMINOPHEN 325 MG TABLET PO PRN (18:38)
[2025-09-07 19:35] VITALS: RESP 17
[2025-09-07 20:17] VITALS: BP 117/79; PULSE 89; RESP 18; TEMP 97.5; O2SAT 99
[2025-09-08 08:04] VITALS: BP 123/86; PULSE 82; RESP 18; TEMP 97.1; O2SAT 99
== END 2025-09-08 12:40 | disposition home or self-care (01) | DRG 750 ==
LOC: EMS 21:21 → B3A 09-06 02:21
PROVIDERS: ADMIT Psychiatry & Neurology Child & Adolescent Psychiatry; ATTEND Psychiatry & Neurology Child & Adolescent Psychiatry
PROC: GZ56ZZZ Individual Psychotherapy, Supportive (ICD-10-PCS; principal; 2025-09-06)
PROC: GZ58ZZZ Individual Psychotherapy, Cognitive-Behavioral (ICD-10-PCS; 2025-09-06)
DX: F20.0 Paranoid schizophrenia (principal); R45.850 Homicidal ideations; I10 Essential (primary) hypertension; E78.5 Hyperlipidemia, unspecified; F41.9 Anxiety disorder, unspecified; Z20.822 Contact with and (suspected) exposure to COVID-19; F90.9 Attention-deficit hyperactivity disorder, unspecified type; Z88.8 Allergy status to other drugs, medicaments and biological substances; Z91.041 Radiographic dye allergy status; E55.9 Vitamin D deficiency, unspecified
CPT/HCPCS: 80048; 80061; 83036; 84443; 85025; 90732; 96372; 99285; J1630; J2060